=== PATIENT | male | born 1995 | race Caucasian/White ===

== ENCOUNTER 2018-10-17 04:56 | Emergency (ER) | payer BC, OTHER ==
[~2018-10-17] VITALS: Ht 182.9 cm; Wt 124.7 kg
[2018-10-17] MEDS ORDERED: LACTATED RINGERS 1,000 ML IV ONE ×2 (05:04→05:07)
--- NOTE | 2018-10-17 05:04 | ED Abdominal Pain ---
General Stated Complaint: STOMACH PAIN Source of Information: Patient, EMS Exam Limitations: No Limitations (GEE AUGUSTE) History of Present Illness Date Seen by Provider: Oct 17, 2018 Time Seen by Provider: 04:53 Initial Comments Patient reports the ER by EMS with chief complaint that he woke up at 4:00 from a sudden, constant, severe cramping like pain in his right lower quadrant. He describes it as a leg cramp all concentrated in his belly. He had a normal bowel movement yesterday. Last meal was last night before going to bed hamburger and burmese fries. The pain does not radiate. He has some nausea and vomiting times one. No nausea for EMS. Patient has no history of abdominal surgeries, trauma or medical problems. He does not take any medicines or have any allergies to medicines. He does not smoke or use recreational drugs but he does have an occasional drink with his last beer being 2 days ago. Pain is not worse on movement and is just constant and nothing is making it better. He has not tried taking any medicines for it. It scared him so they called EMS. (GEE AUGUSTE) Allergies and Home Medications Allergies Coded Allergies: No Known Drug Allergies (Unverified , 10/17/18) Home Medications Cephalexin 500 Mg Tablet, 500 MG PO BID Prescribed by: GEE AUGUSTE on 10/17/18 0600 Hydrocodone Bit/Acetaminophen 1 Tab Tab, 1-2 EACH PO Q6H Prescribed by: GEE AUGUSTE on 10/17/18 0600 Ondansetron 4 Mg Tab.rapdis, 4 MG PO Q6H PRN for NAUSEA/VOMITING Prescribed by: GEE AUGUSTE on 10/17/18 0600 Tamsulosin HCl 0.4 Mg Cap, 0.4 MG PO DAILY Prescribed by: GEE AUGUSTE on 10/17/18 0600 Patient Home Medication List Home Medication List Reviewed: Yes (GEE AUGUSTE) Review of Systems Review of Systems Constitutional: chills; No fever, No malaise EENTM: No Blurred Vision, No Eye Pain Respiratory: Denies Cough Cardiovascular: Denies Chest Pain, Denies Edema Gastrointestinal: See HPI, Abdominal Pain; Denies Constipated, Denies Diarrhea ; Nausea; Denies Poor Fluid Intake; Vomiting Genitourinary: Denies Burning, Denies Discharge, Denies Drainage, Denies Hematuria Musculoskeletal: No back pain, No joint pain Skin: No pruritus, No rash Psychiatric/Neurological: Denies Headache, Denies Numbness, Denies Paresthesia (GEE AUGUSTE) Past Vyqofkx-[id number]-Zusfcc Hx Patient Social History Alcohol Use: Occasionally Uses Alcohol Beverage of Choice: Beer Recreational Drug Use: No Smoking Status: Never a Smoker Recent Foreign Travel: No Contact w/Someone Who Travel: No (GEE AUGUSTE) Physical Exam Vital Signs Vital Signs - First Documented 10/17/18 05:10 Temp 99.7 Pulse 93 Resp 18 B/P (MAP) 148/87 (107) Pulse Ox 98 (CHRISTAL BUCKLEY MD) Vital Signs Capillary Refill : (GEE AUGUSTE) Height/Weight/BMI Height: '" Weight: lbs. oz. kg; BMI Method: General Appearance: WD/WN, mild distress HEENT: PERRL/EOMI, normal ENT inspection, pharynx normal Respiratory: lungs clear, normal breath sounds, no respiratory distress, no accessory muscle use Cardiovascular: normal peripheral pulses, regular rate, rhythm, no edema Peripheral Pulses: 2+ Dorsalis Pedis (R), 2+ Left Dors-Pedis (L) Gastrointestinal: normal bowel sounds, no organomegaly, guarding (right lower quadrant), rebound (over McBurney's point), tenderness (over McBurney's point), other (Rovsing's and psoas sign positive. He has some mesenteric signs.) (GEE AUGUSTE) Progress/Results/Core Measures Results/Orders Lab Results Laboratory Tests Test 10/17/18 05:04 10/17/18 05:51 Range/Units White Blood Count 9.9 4.3-11.0 10^3/uL Red Blood Count 5.15 4.35-5.85 10^6/uL Hemoglobin 14.6 13.3-17.7 G/DL Hematocrit 44 40-54 % Mean Corpuscular Volume 85 80-99 FL Mean Corpuscular Hemoglobin 28 25-34 PG Mean Corpuscular Hemoglobin Concent 33 32-36 G/DL Red Cell Distribution Width 12.8 10.0-14.5 % Platelet Count 208 130-400 10^3/uL Mean Platelet Volume 11.5 H 7.4-10.4 FL Neutrophils (%) (Auto) 42 42-75 % Lymphocytes (%) (Auto) 42 12-44 % Monocytes (%) (Auto) 13 H 0-12 % Eosinophils (%) (Auto) 3 0-10 % Basophils (%) (Auto) 1 0-10 % Neutrophils # (Auto) 4.1 1.8-7.8 X 10^3 Lymphocytes # (Auto) 4.2 H 1.0-4.0 X 10^3 Monocytes # (Auto) 1.3 H 0.0-1.0 X 10^3 Eosinophils # (Auto) 0.3 0.0-0.3 10^3/uL Basophils # (Auto) 0.1 0.0-0.1 10^3/uL Sodium Level 138 135-145 MMOL/L Potassium Level 4.5 3.6-5.0 MMOL/L Chloride Level 104 98-107 MMOL/L Carbon Dioxide Level 24 21-32 MMOL/L Anion Gap 10 5-14 MMOL/L Blood Urea Nitrogen 12 7-18 MG/DL Creatinine 1.03 0.60-1.30 MG/DL Estimat Glomerular Filtration Rate > 60 BUN/Creatinine Ratio 12 Glucose Level 106 H 70-105 MG/DL Calcium Level 9.2 8.5-10.1 MG/DL Corrected Calcium 9.0 8.5-10.1 MG/DL Total Bilirubin 0.2 0.1-1.0 MG/DL Aspartate Amino Transf (AST/SGOT) 40 H 5-34 U/L Alanine Aminotransferase (ALT/SGPT) 28 0-55 U/L Alkaline Phosphatase 63 40-136 U/L C-Reactive Protein High Sensitivity 1.66 H 0.00-0.50 MG/DL Total Protein 7.9 6.4-8.2 GM/DL Albumin 4.2 3.2-4.5 GM/DL Serum Alcohol < 10 <10 MG/DL Urine Color YELLOW Urine Clarity CLEAR Urine pH 6.5 5-9 Urine Specific [place] 1.010 L 1.016-1.022 Urine Protein 1+ H NEGATIVE Urine Glucose (UA) NEGATIVE NEGATIVE Urine Ketones NEGATIVE NEGATIVE Urine Nitrite NEGATIVE NEGATIVE Urine Bilirubin NEGATIVE NEGATIVE Urine Urobilinogen NORMAL NORMAL MG/DL Urine Leukocyte Esterase NEGATIVE NEGATIVE Urine RBC (Auto) NEGATIVE NEGATIVE Urine RBC NONE /HPF Urine WBC NONE /HPF Urine Squamous Epithelial Cells 0-2 /HPF Urine Crystals NONE /LPF Urine Bacteria TRACE /HPF Urine Casts NONE /LPF Urine Mucus NEGATIVE /LPF Urine Culture Indicated NO Urine Opiates Screen POSITIVE H NEGATIVE Urine Oxycodone Screen NEGATIVE NEGATIVE Urine Methadone Screen NEGATIVE NEGATIVE Urine Propoxyphene Screen NEGATIVE NEGATIVE Urine Barbiturates Screen NEGATIVE NEGATIVE Ur Tricyclic Antidepressants Screen NEGATIVE NEGATIVE Urine Phencyclidine Screen NEGATIVE NEGATIVE Urine Amphetamines Screen NEGATIVE NEGATIVE Urine Methamphetamines Screen NEGATIVE NEGATIVE Urine Benzodiazepines Screen NEGATIVE NEGATIVE Urine Cocaine Screen NEGATIVE NEGATIVE Urine Cannabinoids Screen NEGATIVE NEGATIVE (CHRISTAL BUCKLEY MD) Medications Given in ED Current Medications Medications Dose Ordered Sig/Lynda Route Start Time Stop Time Status Last Admin Dose Admin Ceftriaxone Sodium 1000 mg/ Sterile Water 10 ml @ 200 mls/hr ONCE ONCE IV 10/17/18 06:00 10/17/18 06:02 DC 10/17/18 06:06 200 MLS/HR Fentanyl Citrate 50 mcg ONCE ONCE IVP 10/17/18 05:30 10/17/18 05:31 DC 10/17/18 05:40 50 MCG Iohexol 100 ml ONCE ONCE IV 10/17/18 05:45 10/17/18 05:46 DC 10/17/18 05:35 100 ML Ketorolac Tromethamine 30 mg ONCE ONCE IVP 10/17/18 06:00 10/17/18 06:01 DC 10/17/18 06:06 30 MG Lactated Ringer's 1,000 ml @ 0 mls/hr Q0M ONCE IV 10/17/18 05:07 10/17/18 05:08 DC 10/17/18 05:40 0 MLS/HR Sodium Chloride 100 ml ONCE ONCE IV 10/17/18 05:45 10/17/18 05:46 DC 10/17/18 05:35 80 ML (CHRISATL BUCKLEY MD) Vital Signs/I&O 10/17/18 05:10 Temp 99.7 Pulse 93 Resp 18 B/P (MAP) 148/87 (107) Pulse Ox 98 (CHRISTAL BUCKLEY MD) Progress Progress Note #1: Time: 05:03 Progress Note Elevated temperature of 99.2, acute appendiceal abdominal signs on examination. Plan to do a CT with contrast, liter of LR and labs and urine. Less likely this could be kidney stone or just colitis. Toradol. He is declining anything for nausea. Patient's white count is not elevated but he has a heart rate above 90. He does not meet septic criteria. We'll hold off doing any antibiotics for his abdominal pain until we see the CT scan. Progress Note #2: Time: 05:56 Progress Note The patient's pain improved with fentanyl but I would give Toradol since he is still having quite a bit of discomfort, pacing on the floor. No nausea right now. (GEE AUGUSTE) Progress Note : Time: 07:[address] scan report reviewed. There is a 3 mm right UVJ stone with no other pathology identified. Patient is feeling much better after Toradol. Discharge was prepared by Dr. Auguste. Patient is being dismissed to outpatient follow-up. (CHRISTAL BUCKLEY MD) Diagnostic Imaging Diagonstic Imaging: CT (with contrast) Plain Films/CT/US/NM/MRI: abdomen, pelvis Comments Appendix is visualized and unremarkable. There is a 2-3 mm ureteral stone down by the UVJ on the right side. Mild hydroureter. Reviewed: Reviewed by Me (GEE AUGUSTE) Transfer of Care Time: 06:01 Care transferred to: Dr. Rosen (GEE AUGUSTE) Departure Impression Primary Impression: Ureteral calculus, right Disposition: 01 HOME, SELF-CARE Condition: Improved Departure-Patient Inst. Referrals: DENIS YANG MD UNKNOWN (PCP) Primary Care Physician Patient Instructions: Kidney Stones (DC) Add. Discharge Instructions: Drink lots of fluids, caffeine is encouraged. Strain your urine to try and catch the stone. You can take it your primary doctor or the urologist Dr. Yang to have an identified by the lab and possibly do some more information in terms of preventing these in the future. After passing the stone he will usually have improvement of symptoms within a day or 2. Use ibuprofen 800 mg every 8 hours as needed for pain. You can also use the hydrocodone one to 2 tablets every 6 hours as needed for pain relief. Heating pads and rest. Until you pass the stone take one tablet of Flomax daily to help pass the stone. Use the Keflex one capsule twice a day to prevent bladder infection for the next week. Use the Zofran 1 tablet every 6 hours as needed for nausea. If you're having difficulty passing the stone you can follow-up by calling the urologist. Scripts Tamsulosin HCl (Flomax) 0.4 Mg Cap 0.4 MG PO DAILY for 7 Days, #7 CAP 0 Refills Prov: GEE AUGUSTE 10/17/18 Ondansetron (Ondansetron Odt) 4 Mg Tab.rapdis 4 MG PO Q6H PRN for NAUSEA/VOMITING, #8 TAB 0 Refills Prov: GEE AUGUSTE 10/17/18 Hydrocodone Bit/Acetaminophen (Hydrocodone/Acetaminophen 5/325mg Tablet) 1 Tab Tab 1-2 EACH PO Q6H for PAIN-MODERATE MDD 10, #15 TAB 0 Refills Prov: GEE AUGUSTE 10/17/18 Cephalexin (Cephalexin) 500 Mg Tablet 500 MG PO BID for 7 Days, #14 TAB 0 Refills Prov: GEE AUGUSTE 10/17/18 Work/School Note: School/Childcare Release Date Seen in the Emergency Department: Oct 17, 2018 Time Dismissed from Emergency Department: 06:30 Return to School: Oct 18, 2018 Restrictions: No Restrictions GEE AUGUSTE Oct 17, 2018 05:04 CHRISTAL BUCKLEY MD Oct 17, 2018 07:03
[2018-10-17 05:11] LABS: BASOPHILS # (AUTO) 0.1 10^3/uL (0.0-0.1); BASOPHILS % (AUTO) 1 % (0-10); EOSINOPHILS # (AUTO) 0.3 10^3/uL (0.0-0.3); EOSINOPHILS % (AUTO) 3 % (0-10); HEMATOCRIT 44 % (40-54); HEMOGLOBIN 14.6 G/DL (13.3-17.7); LYMPHOCYTES # (AUTO) 4.2 X 10^3 (1.0-4.0); LYMPHOCYTES % (AUTO) 42 % (12-44); MEAN CORPUSCULAR HEMOGLOBIN 28 PG (25-34); MEAN CORPUSCULAR HGB CONC 33 G/DL (32-36); MEAN CORPUSCULAR VOLUME 85 FL (80-99); MEAN PLATELET VOLUME 11.5 FL (7.4-10.4); MONOCYTES # (AUTO) 1.3 X 10^3 (0.0-1.0); MONOCYTES % (AUTO) 13 % (0-12); NEUTROPHILS # (AUTO) 4.1 X 10^3 (1.8-7.8); NEUTROPHILS % (AUTO) 42 % (42-75); PLATELET COUNT 208 10^3/uL (130-400); RED CELL DISTRIBUTION WIDTH 12.8 % (10.0-14.5); WHITE BLOOD COUNT 9.9 10^3/uL (4.3-11.0)
[2018-10-17] MEDS ORDERED: KETOROLAC 30 MG/ML VIAL IVP ONE ×2 (05:15→06:00)
[2018-10-17 05:27] LABS: ALANINE AMINOTRANSFERASE 28 U/L (0-55); ALBUMIN 4.2 GM/DL (3.2-4.5); ALKALINE PHOSPHATASE 63 U/L (40-136); BILIRUBIN,TOTAL 0.2 MG/DL (0.1-1.0); BUN/CREATININE RATIO 12; CALCIUM 9.2 MG/DL (8.5-10.1); CARBON DIOXIDE 24 MMOL/L (21-32); CHLORIDE 104 MMOL/L (98-107); CREATININE SERUM 1.03 MG/DL (0.60-1.30); GFR ESTIMATED > 60; GLUCOSE 106 MG/DL (70-105); POTASSIUM 4.5 MMOL/L (3.6-5.0); SODIUM 138 MMOL/L (135-145); TOTAL PROTEIN 7.9 GM/DL (6.4-8.2)
[2018-10-17] MEDS ORDERED: fentaNYL INJECTION 100 MCG/2 ML AMP IVP ONE (05:30)
[2018-10-17] MEDS ORDERED: NS 100 ML (IVPB) BAG IV ONE (05:45)
[2018-10-17] MEDS ORDERED: RECEIVED CONTRAST 20 ML VIAL IV SCH (05:45)
[2018-10-17] MEDS ORDERED: IOHEXOL 350 MG/ML 100 ML (OMNIPAQUE 350) VIAL IV ONE (05:45)
[2018-10-17 06:00] LABS: BILIRUBIN,URINE NEGATIVE (NEGATIVE); CLARITY,URINE CLEAR; COLOR,URINE YELLOW; GLUCOSE, URINE (UA) NEGATIVE (NEGATIVE); KETONES,URINE NEGATIVE (NEGATIVE); LEUKOCYTE ESTERASE ,URINE NEGATIVE (NEGATIVE); NITRITE,URINE NEGATIVE (NEGATIVE); PH,URINE 6.5 (5-9); PROTEIN,URINE 1+ (NEGATIVE); UROBILINOGEN,URINE NORMAL (NORMAL)
[2018-10-17] MEDS ORDERED: CEPH500T PO (06:00)
[2018-10-17] MEDS ORDERED: ONDA4TAB11 PO (06:00)
[2018-10-17] MEDS ORDERED: cefTRIAXone FOR IV USE 1,000 MG in WATER (STERILE) FOR INJECTION 10 ML IV ONE (06:00)
[2018-10-17] MEDS ORDERED: ACHD5005 PO (06:00)
[2018-10-17] MEDS ORDERED: TAMS0.4C98 PO (06:00)
[2018-10-17 06:10] LABS: BACTERIA,URINE TRACE /HPF; SQUAMOUS EPITHELIAL CELL,UR 0-2 /HPF
[2018-10-17 06:11] LABS: AMPHETAMINE SCREEN, URINE NEGATIVE (NEGATIVE); BARBITURATE SCREEN URINE NEGATIVE (NEGATIVE); BENZODIAZEPINES SCREEN URINE NEGATIVE (NEGATIVE); CANNABINOID SCREEN, URINE NEGATIVE (NEGATIVE); COCAINE SCREEN URINE NEGATIVE (NEGATIVE); METHADONE STAT NEGATIVE (NEGATIVE); METHAMPHETAMINE SCREEN URINE S NEGATIVE (NEGATIVE); OPIATE SCREEN URINE POSITIVE (NEGATIVE); OXYCODONE STAT NEGATIVE (NEGATIVE); PROPOXYPHENE STAT NEGATIVE (NEGATIVE); TRICYCLIC ANTIDEPRESSANTS SCRE NEGATIVE (NEGATIVE)
[2018-10-17 07:02] VITALS: BP 132/87
--- NOTE | 2018-10-17 08:52 | Diagnostic Imaging Report ---
PROCEDURE: CT abdomen and pelvis with contrast, rule out appendicitis. TECHNIQUE: Multiple contiguous axial images were obtained through the abdomen and pelvis after the administration of intravenous contrast. INDICATION: Right lower quadrant abdominal pain. COMPARISON: None FINDINGS: Included portions of the lung bases are clear. CT ABDOMEN: There is a 4 mm calculus within the distal right ureter (image #[id number], series 2). As a result, there is mild proximal hydroureteronephrosis. No additional renal or ureteral calculi are seen on either side. No focal renal masses are seen. The spleen, pancreas, adrenal glands, and liver have a normal CT appearance. There is no loculated fluid collection, free fluid, nor free air within the abdomen. No abnormal mesenteric or retroperitoneal adenopathy is seen. Normal appendix is identified. Small bowel loops are nondistended. Bony structures show no acute abnormalities. CT PELVIS: Urinary bladder is minimally distended, but is otherwise grossly unremarkable. There is no loculated fluid collection, free fluid, nor free air within the pelvis. No abnormal lymph nodes are seen. Bony structures show no acute abnormalities. IMPRESSION: 1. 4 mm calculus within the distal right ureter resulting in mild proximal hydroureteronephrosis. Dictated by: Dictated on workstation # [id number]
== END 2018-10-17 07:14 | disposition home or self-care (01) ==
LOC: ER 04:58
DX: N13.2 Hydronephrosis with renal and ureteral calculous obstruction (principal)
CPT/HCPCS: 36415; 74177; 80053; 80306; 80320; 81000; 85025; 86141

== ENCOUNTER → 2022-01-14 | Outpatient (CLI) | payer OTHER ==
[~2022-01-14] MED LIST: ACHD5005 PO; CEPH500T PO; ONDA4TAB11 PO; TMSL.4C PO
--- NOTE | 2022-01-14 17:10 | Diagnostic Imaging Report ---
INDICATION: Right hip pain AP and oblique views of the right hip are obtained. No fracture or acute bony abnormality seen. Incidental bone island is seen in the intertrochanteric region. There is no destructive bony lesion. IMPRESSION: Essentially negative right hip. Dictated by: Dictated on workstation # [id number]
--- NOTE | 2022-01-14 17:30 | Diagnostic Imaging Report ---
EXAMINATION: Lumbosacral spine 2 or 3 views HISTORY: CONTINUED LOW BACK PAIN, HIP PAIN W/O RELIEF COMPARISON: None available. FINDINGS: There is normal height and alignment of the vertebral bodies. No fractures or subluxations appreciated. Intervertebral disc spaces maintained. Soft tissues unremarkable. IMPRESSION: 1. No acute process. Dictated by: Dictated on workstation # [id number]
== END ==
LOC: RAD 16:15
PROVIDERS: ATTEND Chiropractor
DX: M99.04 Segmental and somatic dysfunction of sacral region (principal); M25.551 Pain in right hip
CPT/HCPCS: 72100; 73502

== ENCOUNTER 2022-02-11 16:09 | Outpatient (RCR) | payer OTHER | END 2022-02-12 | disposition home or self-care (01) | PROVIDERS: ATTEND Chiropractor | DX: M54.16 Radiculopathy, lumbar region (principal) ==

== ENCOUNTER 2022-02-23 16:18 | Outpatient (RCR) | payer OTHER | END 2022-03-15 | disposition home or self-care (01) | PROVIDERS: ATTEND Chiropractor | DX: M54.16 Radiculopathy, lumbar region (principal) ==